=== PATIENT | male | born 1995 | race African-American/Black ===

== ENCOUNTER 2016-08-28 11:05 | Emergency (ER) ==
[2016-08-28 11:38] LABS: MANUAL DIFF NEEDED? NO
[2016-08-28 11:59] LABS: URINE CULTURE PL NEEDED? NO; URINE SOURCE VOIDED
[2016-08-28 12:22] LABS: UR AMPHETAMINES QUAL NONE DETECTED (NONE DETECT); UR BARBITUATES QUAL NONE DETECTED (NONE DETECT); UR BENZODIAZEPIN QUAL NONE DETECTED (NONE DETECT); UR CANNABINOIDS QUAL PRESUMPTIVE POSITIVE (NONE DETECT); UR COCAINE QUAL NONE DETECTED (NONE DETECT); UR MDMA QUAL NONE DETECTED (NONE DETECT); UR METHADONE QUAL NONE DETECTED (NONE DETECT); UR METHAMPHETAMINE QUAL NONE DETECTED (NONE DETECT); UR OPIATES QUAL NONE DETECTED (NONE DETECT); UR OXYCODONE QUAL NONE DETECTED (NONE DETECT); UR PCP QUAL NONE DETECTED (NONE DETECT); UR TCA QUAL NONE DETECTED (NONE DETECT)
[2016-08-28 12:23] LABS: BILIRUBIN URINE NEGATIVE (NEGATIVE); CLARITY CLEAR (CLEAR); COLOR YELLOW; GLUCOSE URINE NEGATIVE (NEGATIVE); URINE EPITHELIAL CELLS <10 /HPF (<10)
--- NOTE | 2016-08-28 13:01 | ED EKG INTERP ---
EKG Interpretation - EKG Time of EKG reading by physician:: 12:36 EKG Read and Signed by:: Wayne Gallegos EKG Interpretation (*Must complete 3 of following elements*): Abnormal Rate: 51 Rhythm: sinus bradycardia Comments: ST elevation, probably due to early repolarization Attestation - Scribe Verification/Attestation Scribe:: Vaishali Grimaldo Acting as Scribe for:: Wayne Gallegos Scribe documention review:: This chart was documented by a scribe and accurately reflects the service the provider performed and the decisions made by the provider.
[2016-08-28 13:10] LABS: BLOOD URINE TRACE (NEGATIVE); LEUKOCYTES URINE 1+ (NEGATIVE); NITRITE URINE NEGATIVE (NEGATIVE); PROTEIN URINE TRACE mg/dL (NEGATIVE); SP GRAVITY URINE 1.015; UROBILINOGEN URINE NORMAL
[2016-08-28 13:10] LABS: ACETAMINOPHEN < 1.2 ug/mL (10-30); AGAP 8; ALBUMIN 4.4 g/dL (3.5-5.0); ALKALINE PHOSPHATASE 71 U/L (32-122); BUN 10 mg/dL (8-22); CALCIUM 10.3 mg/dL (8.8-10.2); CHLORIDE 103 mmol/L (98-107); COSMO 274; GOT 22 U/L (10-34); GPT 30 U/L (10-44); MAGNESIUM 1.9 mg/dL (1.5-2.7); POTASSIUM 4.6 mmol/L (3.5-5.1); SODIUM 138 mmol/L (136-145); TCO2 27 mmol/L (25-35); TOTAL PROTEIN 7.5 g/dL (6.3-8.3)
[2016-08-28 13:11] LABS: BASO% 0.6 % (0.0-0.8); EOS% 1.6 % (0.0-10.0); HEMATOCRIT 44.1 % (42.0-52.0); IMM GRAN# 0.02 X1000 (0.0-0.04); IMM GRAN% 0.3 % (0.0-0.5); LYMPH# 2.17 X1000 (1.2-3.4); LYMPH% 34.5 % (20.5-51.1); MCH 26.5 PG (27-31); MCHC 31.7 g/dL (33-37); MCV 83.5 FL (81-99); MONO# 0.68 X1000 (0.11-0.59); MONO% 10.8 % (1.7-9.3); MPV 10.1 FL (7.4-10.4); NEUT% 52.2 % (42.2-75.2); PLT 212 X1000 (130-400); RBC 5.28 XMIL (4.7-6.1)
[2016-08-28] MEDS ORDERED: ROCEPHIN IM ONE (13:25)
[2016-08-28] MEDS ORDERED: XYLOCAINE-MPF 1% INJ ONE (13:25)
--- NOTE | 2016-08-28 14:10 | EKG Report ---
Test Performed on : 08/28/2016 12:36:20 PM Test Reason : med clear jarreau Blood Pressure : / mmHG Vent. Rate : 051 BPM Atrial Rate : 051 BPM P-R Int : 162 ms QRS Dur : 086 ms QT Int : 402 ms P-R-T Axes : 058 055 041 degrees QTc Int : [address] elevation, probably due to early repolarization Borderline ECG When compared with ECG of 28-DEC-2013 08:52, ST less elevated in Anterior leads Unconfirmed Result
--- NOTE | 2016-08-28 17:22 | PROVIDER DOCUMENTATION ---
HPI-Psychological Disorder - General Chief Complaint: Psych Stated Complaint: PSYCH EVAL Time Seen by Provider: 08/28/16 11:24 Source: patient Allergies/Adverse Reactions: Patient Allergies Allergy/AdvReac Type Severity Reaction Status Date / Time No Known Allergies Allergy Verified 06/13/16 11:42 Home Medications: Home Medication List Medication Instructions Recorded Confirmed Last Taken Type Levetiracetam [Keppra] 1,000 mg PO BID 06/13/16 06/20/16 Unknown History - History of Present Illness-Psych Nature of Presenting Problem: This pt presents today c complaints of depression and SI. He states that he does not feel like anyone cares about him and thought about cutting himself c a knife. He has had these types of episodes in the past. No attempt today. Onset/Duration: reports: unsure Timing: reports: still present Severity: reports: severe Situational problems related to:: reports: other (see hpi) Psychiatric Complaints: reports: depressed, suicidal ideation Substance Use: reports: marijuana Previous psych related hospitalizations?: Yes Patient arrived by:: private car Similar Symptoms Previously?: Yes Recently seen or treated by another doctor?: No Review of Systems - Adult - REVIEW OF SYSTEMS - ADULT Constitutional: reports: no symptoms reported. denies: chills, fatique Eyes: reports: no symptoms reported. denies: discharge, dry eyes Ears, Nose, Mouth & Throat: reports: no symptoms reported. denies: ear discharge, ear pain Cardiovascular: reports: no symptoms reported. denies: chest pain, edema Respiratory: reports: no symptoms reported. denies: chronic cough, cough Gastrointestinal: reports: no symptoms reported. denies: abdominal pain, hematemesis Genitourinary: reports: no symptoms reported. denies: dysuria, discharge Musculoskeletal: reports: no symptoms reported. denies: bone pain, back pain Integumentary: reports: no symptoms reported. denies: hives, hair loss Neurological: reports: no symptoms reported. denies: ataxia, dizziness/vertigo Psychiatric: reports: anxiety, depression, suicidal thoughts. denies: anti- depressant use, emotional problems, insomnia Endocrine: reports: no symptoms reported Hematologic/Lymphatic: reports: no symptoms reported Allergic/Immunologic: reports: no symptoms reported All Other Systems: Reviewed and Negative Past History - Adult - PAST MEDICAL HISTORY-ADULT Review of Records: reports: Old Records Reviewed, Nursing Assessment Review, Medications Reviewed, Social history reviewed & non-contributory. Major Childhood Illnesses: reports: denies history Cardiovascular: reports: denies history Respiratory: reports: denies history Gastrointestinal: reports: denies history Obstetrical/Gynecological: reports: denies history Genitourinary: reports: denies history Musculoskeletal: reports: denies history Neurological: reports: Seizures/Epilepsy Psychiatric: reports: depression Endocrine/Immune: reports: denies history Other Conditions: reports: denies history - PRIOR SURGERIES/PROCEDURES Surgical/Procedure History: reports: none - IMMUNIZATION STATUS Childhood Immunizations: See Nurse Assessment Flu Vaccine: See Nurse Assessment - FAMILY HISTORY Family History: reviewed, not pertinent Physical Exam-Psych Focus - Physical Exam-Psych Initial Vital Signs Reviewed: Yes Appearance: appropriate appearance, appropriate insight, neat, no apparent distress, no memory impairment. 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 negative: disoriented x 3, flat Behavior/Eye Contact/Speech: cooperative, good eye contact, normal speech. negative: decreased rate of speech, increased rate of speech Thoughts/Hallucinations: normal thought pattern, no apparent hallucination. negative: auditory hallucinations, paranoid, persecution HENMT: normocephalic/atraumatic, moist mucous membranes, normal ENT inspection Neck: non-tender, full range of motion Respiratory: chest non-tender, lungs clear Cardiovascular: normal peripheral pulses, regular rate, rhythm, no edema, no gallop, no JVD, no murmur Abdominal Exam: normal bowel sounds, non tender, soft Back Exam: normal inspection Extremity: normal range of motion, non-tender, normal gait, normal inspection Integumentary: normal color, normal turgor, warm/dry Progress - PLAN OF CARE/RESULTS Progress/Plan/Lab Results: Laboratory Tests 08/28/16 08/28/16 08/28/16 11:20 11:20 11:31 WBC RBC Hgb Hct MCV MCH MCHC RDW Std Deviation Plt Count MPV Immature Gran % (Auto) Neut % (Auto) Lymph % (Auto) [place] % (Auto) Eos % (Auto) Baso % (Auto) Immature Gran # (Auto) Neut # (Auto) Lymph # (Auto) [place] # (Auto) Eos # (Auto) Baso # (Auto) Sodium 138 Potassium 4.6 Chloride 103 Carbon Dioxide 27 Anion Gap 8 BUN 10 Creatinine 1.2 Estimated GFR/1.73 m2 > 60 BUN/Creatinine Ratio 8 Glucose 93 Calculated Osmolality 274 Calcium 10.3 H Magnesium 1.9 Total Bilirubin 0.40 AST 22 ALT 30 Alkaline Phosphatase 71 Total Protein 7.5 Albumin 4.4 Globulin 3.0 Albumin/Globulin Ratio 1.0 Urine Source VOIDED Urine Color YELLOW Urine Clarity CLEAR Urine pH 8.0 Ur Specific [place] 1.015 Urine Protein TRACE A Urine Ketones NEGATIVE Urine Blood TRACE Urine Nitrite NEGATIVE Urine Bilirubin NEGATIVE Urine Urobilinogen NORMAL Urine Microscopic RBC 10-20 A Urine WBC 1+ A Urine Microscopic WBC 10-20 A Ur Epithelial Cells <10 Urine Glucose NEGATIVE Salicylates < 3.00 L Urine Opiates Screen NONE DETECTED Ur Oxycodone Screen NONE DETECTED Urine Methadone Screen NONE DETECTED Acetaminophen < 1.2 L Ur Barbituates Screen NONE DETECTED Ur Tricyclics Screen NONE DETECTED Ur Phencyclidine Scrn NONE DETECTED Ur Amphetamines Screen NONE DETECTED U Methamphetamines Scrn NONE DETECTED Urine MDMA Screen NONE DETECTED U Benzodiazepines Scrn NONE DETECTED Urine Cocaine Screen NONE DETECTED U Cannabinoids Screen PRESUMPTIVE POSITIVE A Plasma/Serum Ethyl Alc 08/28/16 08/28/16 11:31 11:31 WBC 6.29 RBC 5.28 Hgb 14.0 Hct 44.1 MCV 83.5 MCH 26.5 L MCHC 31.7 L RDW Std Deviation 14.1 Plt Count 212 MPV 10.1 Immature Gran % (Auto) 0.3 Neut % (Auto) 52.2 Lymph % (Auto) 34.5 [place] % (Auto) 10.8 H Eos % (Auto) 1.6 Baso % (Auto) 0.6 Immature Gran # (Auto) 0.02 Neut # (Auto) 3.28 Lymph # (Auto) 2.17 [place] # (Auto) 0.68 H Eos # (Auto) 0.10 Baso # (Auto) 0.04 Sodium Potassium Chloride Carbon Dioxide Anion Gap BUN Creatinine Estimated GFR/1.73 m2 BUN/Creatinine Ratio Glucose Calculated Osmolality Calcium Magnesium Total Bilirubin AST ALT Alkaline Phosphatase Total Protein Albumin Globulin Albumin/Globulin Ratio Urine Source Urine Color Urine Clarity Urine pH Ur Specific [place] Urine Protein Urine Ketones Urine Blood Urine Nitrite Urine Bilirubin Urine Urobilinogen Urine Microscopic RBC Urine WBC Urine Microscopic WBC Ur Epithelial Cells Urine Glucose Salicylates Urine Opiates Screen Ur Oxycodone Screen Urine Methadone Screen Acetaminophen Ur Barbituates Screen Ur Tricyclics Screen Ur Phencyclidine Scrn Ur Amphetamines Screen U Methamphetamines Scrn Urine MDMA Screen U Benzodiazepines Scrn Urine Cocaine Screen U Cannabinoids Screen Plasma/Serum Ethyl Alc Orders Category Date Time Status ACETAMINOPHEN [TDM] Stat Lab 08/28/16 11:31 Completed ALCOHOL BLOOD Stat Lab 08/28/16 11:31 Completed CBC WITH DIFF [HEME] Stat Lab 08/28/16 11:31 Completed COMPREHENSIVE METABOLIC PANEL [CHEM] Stat Lab 08/28/16 11:31 Completed MAGNESIUM [CHEM] Stat Lab 08/28/16 11:31 Completed SALICYLATES [TDM] Stat Lab 08/28/16 11:[address] W/POSS RFLX CULT [URINALYSIS] Stat Lab 08/28/16 11:20 Completed [address]INE DRUG SCREEN PL Stat Lab 08/28/16 11:20 Completed VITAMIN B12 Stat Lab 08/28/16 11:31 Received CefTRIAXONE [Rocephin] Med 08/28/16 13:25 Discontinued 1 gm IM NOW ONE Lidocaine 1% Pf [Xylocaine-Mpf 1%] Med 08/28/16 13:25 Discontinued 5 ml INJ NOW ONE EKG [EKG] Stat Ther 08/28/16 11:17 Draft Vital Signs Temp Pulse Resp BP Pulse Ox 08/28/16 11:12 98 F 68 18 142/91 97 No Known Allergies Allergy (Verified 06/13/16 11:42) Levetiracetam [Keppra] 1,000 mg PO BID 06/13/16 Laboratory 08/28/16 08/28/16 08/28/16 11:31 11:31 11:31 WBC 6.29 RBC 5.28 Hgb 14.0 Hct 44.1 MCV 83.5 MCH 26.5 L MCHC 31.7 L RDW Std Deviation 14.1 Plt Count 212 MPV 10.1 Immature Gran % (Auto) 0.3 Neut % (Auto) 52.2 Lymph % (Auto) 34.5 [place] % (Auto) 10.8 H Eos % (Auto) 1.6 Baso % (Auto) 0.6 Immature Gran # (Auto) 0.02 Neut # (Auto) 3.28 Lymph # (Auto) 2.17 [place] # (Auto) 0.68 H Eos # (Auto) 0.10 Baso # (Auto) 0.04 Sodium 138 Potassium 4.6 Chloride 103 Carbon Dioxide 27 Anion Gap 8 BUN 10 Creatinine 1.2 Estimated GFR/1.73 m2 > 60 BUN/Creatinine Ratio 8 Glucose 93 Calculated Osmolality 274 Calcium 10.3 H Magnesium 1.9 Total Bilirubin 0.40 AST 22 ALT 30 Alkaline Phosphatase 71 Total Protein 7.5 Albumin 4.4 Globulin 3.0 Albumin/Globulin Ratio 1.0 Urine Source Urine Color Urine Clarity Urine pH Ur Specific [place] Urine Protein Urine Ketones Urine Blood Urine Nitrite Urine Bilirubin Urine Urobilinogen Urine Microscopic RBC Urine WBC Urine Microscopic WBC Ur Epithelial Cells Urine Glucose Salicylates < 3.00 L Urine Opiates Screen Ur Oxycodone Screen Urine Methadone Screen Acetaminophen < 1.2 L Ur Barbituates Screen Ur Tricyclics Screen Ur Phencyclidine Scrn Ur Amphetamines Screen U Methamphetamines Scrn Urine MDMA Screen U Benzodiazepines Scrn Urine Cocaine Screen U Cannabinoids Screen Plasma/Serum Ethyl Alc 08/28/16 08/28/16 11:20 11:20 WBC RBC Hgb Hct MCV MCH MCHC RDW Std Deviation Plt Count MPV Immature Gran % (Auto) Neut % (Auto) Lymph % (Auto) [place] % (Auto) Eos % (Auto) Baso % (Auto) Immature Gran # (Auto) Neut # (Auto) Lymph # (Auto) [place] # (Auto) Eos # (Auto) Baso # (Auto) Sodium Potassium Chloride Carbon Dioxide Anion Gap BUN Creatinine Estimated GFR/1.73 m2 BUN/Creatinine Ratio Glucose Calculated Osmolality Calcium Magnesium Total Bilirubin AST ALT Alkaline Phosphatase Total Protein Albumin Globulin Albumin/Globulin Ratio Urine Source VOIDED Urine Color YELLOW Urine Clarity CLEAR Urine pH 8.0 Ur Specific [place] 1.015 Urine Protein TRACE A Urine Ketones NEGATIVE Urine Blood TRACE Urine Nitrite NEGATIVE Urine Bilirubin NEGATIVE Urine Urobilinogen NORMAL Urine Microscopic RBC 10-20 A Urine WBC 1+ A Urine Microscopic WBC 10-20 A Ur Epithelial Cells <10 Urine Glucose NEGATIVE Salicylates Urine Opiates Screen NONE DETECTED Ur Oxycodone Screen NONE DETECTED Urine Methadone Screen NONE DETECTED Acetaminophen Ur Barbituates Screen NONE DETECTED Ur Tricyclics Screen NONE DETECTED Ur Phencyclidine Scrn NONE DETECTED Ur Amphetamines Screen NONE DETECTED U Methamphetamines Scrn NONE DETECTED Urine MDMA Screen NONE DETECTED U Benzodiazepines Scrn NONE DETECTED Urine Cocaine Screen NONE DETECTED U Cannabinoids Screen PRESUMPTIVE POSITIVE A Plasma/Serum Ethyl Alc - PSYCHIATRIC Medically clear for psych eval and/or transfer to [facility].: Yes Psych patient progress: Pt was evaluated and accepted by [facility]. Departure - Departure Time of Disposition Order: 17:22 DIAGNOSIS: Suicidal ideations Disposition: PSYCHIATRIC HOSPITAL/[facility] Certified Medical Emergency: Emergent Condition: Stable Attestation - Physician/ AJAY Attestation Patient care was provided by Advanced Practice Provider:: Yes Advanced Practice Provider:: Ross Barnard Advanced Practice Provider documentation review:: The Mid-level provider documentation, treatment plan and medical decision making was reviewed by the physician who agrees with all treatment and medical decision making by the MLP.
[2016-08-28 17:28] VITALS: BP 133/81
== END 2016-08-28 17:42 ==
LOC: P.ED 11:05
DX: R45.851 Suicidal ideations (principal); R94.31 Abnormal electrocardiogram [ECG] [EKG]; R56.9 Unspecified convulsions; Z79.899 Other long term (current) drug therapy
CPT/HCPCS: 36415; 80053; 80305; 81001; 82607; 83735; 85025; 93005; 96372; G0480; J0696; 80320; 80324; 80329

== ENCOUNTER 2016-08-30 10:59 | Emergency (ER) ==
[2016-08-30 11:05] VITALS: BP 138/086
--- NOTE | 2016-08-30 12:15 | PROVIDER DOCUMENTATION ---
HPI-Neurological Disorder - General Source: patient - History of Present Illness-Neuro Headache Location: reports: global Severity: reports: mild Onset/Duration: reports: just prior to arrival Timing: reports: gone now Context: reports: seizure activity Character of Altered Mental Status: reports: seizure activity Any recent trauma/injury?: reports: none Character of Deficits: denies: new weakness, altered sensation, vision problem/ glaucoma, impaired speech, impaired swallowing, decreased ability to stand, decreased ability to walk, falling New weakness or altered sensation location:: reports: none Cognitive Baseline: alert, oriented x3 Gait Baseline: walks without assistance Associated Symptoms: reports: headache, sleepy, other (stiffness in R shoulder and hand). denies: short of breath, decreased ability to walk or stand, fainting, dizziness, confusion, chest pain, neck/back pain, fatigue, fever/ chills, insomnia, loss of consciousness, muscle spasms, nausea, numbness in legs /feet, paresthesia, diaphoretic, ringing in ears, seizures, slurred speech, tingling in legs/feet, trouble walking, vomiting, vision changes, weakness Similar Symptoms Previously?: Yes Recently seen or treated by another doctor?: Yes - Seizure First time to have a seizure?: No Witnessed seizure?: Yes Episode details: reports: unknown duration, unknown number Episode Frequency: frequent episodes Status Epilepticus: No Post-ictal Symptoms: reports: confusion, headache Seizure related injury: none <Vaishali Grimaldo - Last Filed: 08/30/16 12:09> <Silviano Osorio - Last Filed: 08/30/16 13:16> - General Chief Complaint: Seizure Stated Complaint: SEIZURE Time Seen by Provider: 08/30/16 12:07 Allergies/Adverse Reactions: Patient Allergies Allergy/AdvReac Type Severity Reaction Status Date / Time No Known Allergies Allergy Verified 08/30/16 11:05 Home Medications: Home Medication List Medication Instructions Recorded Confirmed Last Taken Type Levetiracetam [Keppra] 1,000 mg PO BID 06/13/16 08/30/16 08/28/16 08:00 History 1000mg Divalproex E.r. [Depakote ER] 500 mg PO HS 08/30/16 08/30/16 Unknown History Levetiracetam [Keppra] 500 mg PO BID #60 tablet 08/30/16 Unknown Rx - History of Present Illness-Neuro Nature of Presenting Problem: Pt is 20 y/o M presents to the ED via EMS with seizure activity. [facility] staff states she was not present for the seizure but another staff member witnessed the seizure. Pt states GRANT. Pt states stiffness in R shoulder and hand. Pt states last seizure was 4 days ago. Pt states seizures once a week. Pt denies incont of bowel and bladder. (Vaishali Grimaldo) Review of Systems - Adult - REVIEW OF SYSTEMS - ADULT Constitutional: denies: chills, fever Eyes: denies: blurred vision Ears, Nose, Mouth & Throat: denies: ear pain, nose pain, throat pain Cardiovascular: denies: chest pain, heart murmur, irregular heart rate Respiratory: denies: cough, shortness of breath, wheezing Gastrointestinal: denies: abdominal pain, diarrhea, nausea, vomiting Genitourinary: denies: dysuria, hematuria Musculoskeletal: reports: other (R shoulder and hand stiffness). denies: bone pain, joint pain, neck pain Integumentary: denies: hives, itching Neurological: reports: headache/migraines (GRANT). denies: dizziness/vertigo Psychiatric: reports: no symptoms reported Endocrine: reports: no symptoms reported Hematologic/Lymphatic: reports: no symptoms reported Allergic/Immunologic: reports: no symptoms reported All Other Systems: Reviewed and Negative <Vaishali Grimaldo - Last Filed: 08/30/16 12:09> Past History - Adult - PAST MEDICAL HISTORY-ADULT Review of Records: reports: Nursing Assessment Review, Medications Reviewed, Social history reviewed & non-contributory. Major Childhood Illnesses: reports: denies history Cardiovascular: reports: denies history Respiratory: reports: denies history Gastrointestinal: reports: denies history Obstetrical/Gynecological: reports: denies history Genitourinary: reports: denies history Musculoskeletal: reports: denies history Neurological: reports: Seizures/Epilepsy Psychiatric: reports: depression Endocrine/Immune: reports: denies history Other Conditions: reports: denies history - PRIOR SURGERIES/PROCEDURES Surgical/Procedure History: reports: none - IMMUNIZATION STATUS Childhood Immunizations: See Nurse Assessment Flu Vaccine: See Nurse Assessment - FAMILY HISTORY Family History: reviewed, not pertinent - SOCIAL HISTORY Smoking: cigarettes, less than 1 pack/day Provider spent 3-5 mins advising pt. on dangers of tobacco.: Discussed manners to quit use, and f/u contacts for add'l counseling. Substance Use: alcohol, marijuana Alcohol Use Frequency: occasionally Number of drinks per typical drinking period:: 2 drinks Living Situation: care facility ([facility] as of now) <DillanVaishali - Last Filed: 08/30/16 12:09> Physical Exam- Neurological - Physical Exam-Neuro Initial Vital Signs Reviewed: Yes General Appearance: appears well, alert, no apparent distress, slow to respond Eye Exam: bilateral eye: normal inspection, PERRL, EOMI HENMT: normocephalic/atraumatic, moist mucous membranes, normal ENT inspection, TMs normal, pharynx normal Head Injury: no evidence of injury Neck: non-tender, full range of motion, supple, normal inspection Respiratory: chest non-tender, lungs clear, normal breath sounds, no pleuratic chest pain, no respiratory distress, no accessory muscle use Cardiovascular: normal peripheral pulses, regular rate, rhythm, no edema, no gallop, no JVD, no murmur Abdominal Exam: normal bowel sounds, non tender, soft, no organomegaly, no pulsatile mass Lymphatic: no adenopathy Extremity: normal range of motion, non-tender, normal gait, normal inspection, no pedal edema, no calf tenderness, 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 Zhao Time Discussed: 12:10 (Dr. Zhao states increase Keppra to 1500 BID. ) Reason/Comments: Dr. Osorio consults with Dr. Zhao about Pt's recent seizure activity Consult Disposition: other <Vaishali Grimaldo - Last Filed: 08/30/16 12:09> <Silviano Osorio - Last Filed: 08/30/16 13:16> - PLAN OF CARE/RESULTS Progress/Plan/Lab Results: Vital Signs - 24 hr 08/30/16 11:00 Temperature 98.0 F Pulse Rate 68 Respiratory 20 Rate Blood Pressure 138/086 O2 Sat by Pulse 98 Oximetry (Vaishali Grimaldo) Departure <Vaishali Grimaldo - Last Filed: 08/30/16 12:09> - Departure Time of Disposition Order: 13:13 Certified Medical Emergency: Emergent <Silviano Osorio - Last Filed: 08/30/16 13:16> - Departure DIAGNOSIS: Seizure Disposition: PSYCHIATRIC HOSPITAL/[facility] Condition: Good Additional Instructions: ED Follow Up Instructions: You have been treated by a care provider in the Emergency Department. These instructions are being provided to you so you can have an understanding of how to care for yourself upon discharge. Upon discharge from the Emergency Department, you are responsible for making arrangements for follow-up care by a physician of your choice. Take all prescribed medications as directed. Return to the Emergency Department immediately for any new or worsening symptoms. You may call the Physician Referral phone number at [phone] to obtain a list of Physicians who are taking new patients. Prescriptions: Levetiracetam [Keppra] 500 mg PO BID #60 tablet Instructions: Seizure, Adult Attestation - Scribe Verification/Attestation Scribe:: Vaishali Grimaldo Acting as Scribe for:: Silviano Osorio Scribe documention review:: This chart was documented by a scribe and accurately reflects the service the provider performed and the decisions made by the provider. <Vaishali Grimaldo - Last Filed: 08/30/16 12:09> Physician Attestation - Physician Attestation I, the provider, attest to the following statement:: Silviano Osorio Physician documentation Attestation:: This documentation recorded by the scribe accurately reflects the service I personally performed and the decisions made by me. <Silviano Osorio - Last Filed: 08/30/16 13:16>
[2016-08-30] MEDS ORDERED: KEPPRA PO ONE (13:16)
== END 2016-08-30 13:55 ==
LOC: P.ED 10:59
DX: R56.9 Unspecified convulsions (principal); R51 Headache; R41.0 Disorientation, unspecified; F17.210 Nicotine dependence, cigarettes, uncomplicated; Z71.6 Tobacco abuse counseling; Z79.899 Other long term (current) drug therapy